=== PATIENT | male | born 2005 | race Caucasian/White ===

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

== ENCOUNTER 2025-04-24 11:10 | Emergency (ER) | payer OTHER, SELFPAY | END 2025-04-24 12:14 | disposition home or self-care (01) | LOC: MADERS 11:10 | DX: S90.01XA Contusion of right ankle, initial encounter (principal); W55.22XA Struck by cow, initial encounter | CPT/HCPCS: 99283 ==